=== PATIENT | female | born 1980 | race Caucasian/White ===

== ENCOUNTER 2024-11-30 08:36 | Emergency (ER) | payer OTHER ==
[2024-11-30 09:13] LABS: Absolute Basophils 0.1 K/uL (0-0.5); Absolute Eosinophils 0.3 K/uL (0-0.5); Absolute Monocytes 0.5 K/uL (0.1-1.3); Absolute Neutrophil 4.5 K/uL (1.8-8.0); Basophils % 0.9 % (0-1.3); Eosinophils % 3.5 % (0-4.4); Hematocrit 38.8 % (36.0-45.0); Hemoglobin 12.8 g/dL (12.0-15.0); Lymphocytes % 35.6 % (15.3-44.8); MCH 29.1 pg (27.0-35.0); MCHC 33.1 g/dL (32.0-36.0); MCV 87.8 fL (80-100); MPV 6.9 fL (7.6-11.3); Monocytes % 6.3 % (3.3-12.3); Neutrophils % 53.7 % (41.7-73.7); Platelets 374 thou/uL (152-406); RBC Red Blood Cell Count 4.41 M/uL (3.86-4.86); Red Cell Distribution Width 13.6 % (12.1-15.2)
[2024-11-30 09:16] LABS: Specific Gravity 1.024 (1.005-1.030); Urine Bacteria None Seen /HPF (<20); Urine Bilirubin NEGATIVE (Negative); Urine Blood Negative (Negative); Urine Clarity Extremely Turbid (Clear); Urine Color Light-Yellow (Yellow); Urine Culture Reflex Order NOT NEEDED; Urine Glucose NEGATIVE (Negative); Urine Ketones NEGATIVE (Negative); Urine Microscopic Reflex YN ORDER UMIC; Urine Mucus Slight /HPF (None Seen); Urine Nitrite NEGATIVE (Negative); Urine Protein NEGATIVE (Negative); Urine RBC <5 /HPF (None Seen); Urine Urobilinogen Normal (Normal); Urine WBC None Seen /HPF (<5)
--- NOTE | 2024-11-30 09:22 | RAD REPORT ---
EXAMINATION: CT ABDOMEN AND PELVIS WITH CONTRAST CLINICAL INDICATION: Abdominal pain TECHNIQUE: CT abdomen and pelvis was performed, after the administration of 100 cc Isovue-300.. Sagit svetlana and coronal reconstructions were obtained. One or more of the following dose reduction techniques were used: Automated exposure control, adjustment of the mA and kV according to patient si ze, and iterative reconstruction. Unless otherwise specified, incidental findings do not require dedicated imaging follow-up. [id number]. Oral contrast was not given which limits evaluation of bowel and appendix. COMPARISON: .None FINDINGS: Liver, spleen, pancreas, and adrenals appear unremarkable Small bilateral renal calculi. No hydronephrosis. Normal appendix. Hysterectomy. No adnexal mass. Mild stranding within the central mesentery fat. No evidence of diverticulitis. Moderate anterior subluxation L5 on S1. Spondylolysis L5. Tiny umbilical hernia : IMPRESSION: Small nonobstructing bilateral renal calculi Mild stranding within the central mesentery fat may indicate mesenteritis..
[2024-11-30 09:30] LABS: Albumin 3.7 g/dL (3.4-5.0); Anion Gap 6.4 mEq/L (5.0-15.0); Bilirubin Total 0.3 mg/dL (0.2-1.0); Globulin 3.8 g/dL (2.3-3.5); Potassium 3.4 mEq/L (3.5-5.1); Protein, Total 7.5 g/dL (6.4-8.2)
[2024-11-30] MEDS ORDERED: metroNIDAZOLE 500 MG TABLET ONE (09:41)
[2024-11-30] MEDS ORDERED: CIPROFLOXACIN HCL 500 MG TAB ONE (09:42)
--- NOTE | 2024-11-30 10:28 | EDPHYS ---
Physician Documentation [facility] Name: Reema Hargrove Age: 44 yrs Sex: Female : 1980 Arrival Date: 11/30/2024 Time: 08:36 Bed 8 Private MD: ED Physician Malachi Munguia HPI: 11/30 10:21 This 44 yrs old Female presents to ER via Ambulatory with complaints of left side pain, rn Numbness. 10:21 The patient presents with abdominal pain in the left lower quadrant. The symptoms do rn not radiate. Associated signs and symptoms: Pertinent positives: nausea. 10:21 Modifying factors: The symptoms are alleviated by nothing, the symptoms are aggravated rn by touching the area. Severity of pain: At its worst the pain was moderate in the emergency department the pain is unchanged. The patient has experienced similar episodes in the past. Patient reports has been having months of left sided flank and abdominal pain, had shingles and has been attributed to postherpetic neuralgia, on Lyrica with some improvement. Over the last few days has noticed increase in abdominal pain that feels different from her shingles pain or postherpetic neuralgia. No fever or chills. No nausea or vomiting. No blood in stool. Reports sharp and cramping pain that comes in waves. No recent illness. 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 - Infectious Disease History:: Denies. - Social history:: Smoking status: Patient denies any tobacco usage or history of. - Family history:: not pertinent. - Hospitalizations: : No recent hospitalization is reported. ROS: 10:21 Constitutional: Negative for fever, chills, and weight loss, Cardiovascular: Negative rn for chest pain, palpitations, and edema, Respiratory: Negative for shortness of breath, cough, wheezing, and pleuritic chest pain, Abdomen/GI: Positive for left-sided abdominal pain MS/Extremity: Negative for injury and deformity, Skin: Negative for injury, rash, and discoloration, Neuro: Negative for headache, and seizure, Exam: 10:21 Constitutional: This is a well developed, well nourished patient who is awake, alert, rn and in no acute distress. Cardiovascular: Regular rate and rhythm. No pulse deficits. Respiratory: No increased work of breathing, no retractions or nasal flaring. Abdomen/GI: Soft, mild left lower quadrant abdominal tenderness. No rebound or guarding. No rash Vital Signs: 08:48 BP 133 / 94; Pulse 97; Resp 17; Temp 97.9; Pulse Ox 99% ; Weight 86.18 kg; Height 5 ft. jl7 4 in. ; Pain 7/10; 09:44 BP 111 / 72; Pulse 81; Resp 16; Pulse Ox 99% on R/A; iw 10:30 BP 117 / 74; Pulse 77; Resp 17; Pulse Ox 98% on R/A; rs5 08:48 Body Mass Index 32.61 (86.18 kg, 162.56 cm) jl7 08:48 Pain Scale: Adult 7 MDM: 08:40 Medical Screening Exam initiated rn 10:21 Differential diagnosis: gastritis, gastroesophageal reflux disease, non-specific abd rn pain, pancreatitis, Peptic Ulcer Disease, Perf. Duodenal Ulcer, Perf. Gastric Ulcer, Pyelonephritis, Ureterolithiasis, urinary tract infection. Data reviewed: vital signs, nurses notes, lab test result(s), radiologic studies, CT scan, and as a result, I will discharge patient. Counseling: I had a detailed discussion with the patient and/or guardian regarding the historical points, exam findings, and any diagnostic results supporting the discharge/admit diagnosis, lab results, radiology results, the need for outpatient follow up, to return to the emergency department if symptoms worsen or persist or if there are any questions or concerns that arise at home. Special discussion: I discussed with the patient/guardian in detail that at this point there is no indication for admission to the hospital. It is understood, however, that if the symptoms persist or worsen the patient needs to return immediately for re-evaluation. ED course: CT shows mesenteritis, patient is not in low flow state, normotensive and no history of atrial fibrillation, not likely ischemic. Will treat with antibiotics and discharge home.. 11/30 08:54 Order name: CBC with Diff; Complete Time: 09:26 rn 11/30 08:54 Order name: CMP; Complete Time: 09:34 rn 11/30 08:54 Order name: Lipase; Complete Time: 09:34 rn 11/30 08:54 Order name: Urinalysis w/ reflexes; Complete Time: 09:26 rn 11/30 08:54 Order name: CT Abd/Pelvis - IV Contrast Only; Complete Time: 09:26 rn 11/30 08:54 Order name: IV Saline Lock; Complete Time: 09:24 rn 11/30 08:54 Order name: Labs collected and sent; Complete Time: 09:24 rn Administered Medications: 09:44 Drug: Ciprofloxacin PO 500 mg PO once Route: PO; iw 10:25 Follow up: Response: No adverse reaction rs5 09:44 Drug: metroNIDAZOLE PO 500 mg PO once Route: PO; iw 10:25 Follow up: Response: No adverse reaction rs5 Disposition Summary: 11/30/24 10:27 Discharge Ordered Notes: Location: Home rn Problem: new rn Symptoms: have improved rn Condition: Stable rn Diagnosis - Mesenteritis rn Followup: rn - With: Private Physician - When: As needed - Reason: Recheck today's complaints, Re-evaluation by your physician Discharge Instructions: - Discharge Summary Sheet rn - Abdominal Pain, Adult rn Forms: - Medication Reconciliation Form rn - Antibiotic 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 - Prescription Opioid Use rn - Patient Portal Instructions rn - Leadership Thank You Letter rn Prescriptions: - Cipro 500 mg Oral Tablet - take 1 tablet ORAL route every 12 hours for 10 days; 20 tablet; Refills: 0, rn Product Selection Permitted - Flagyl 500 mg Oral Tablet - take 1 tablet ORAL route every 8 hours for 10 days; 30 tablet; Refills: 0, rn Product Selection Permitted - Tramadol 50 mg Oral Tablet - take 1 tablet ORAL route every 8 hours as needed; 12 tablet; Refills: 0, rn Product Selection Permitted Signatures: Dispatcher [employer] Tri Kline RN RN iw Malachi Munguia MD MD rn Leal, Jahala, RN RN jl7 Jt Hernandez RN rs5
--- NOTE | 2024-11-30 10:28 | ER ---
Nurse's Notes [facility] Name: Reema Hargrove Age: 44 yrs Sex: Female : 1980 Arrival Date: 11/30/2024 Time: 08:36 Bed 8 Private MD: Diagnosis: Mesenteritis Presentation: 11/30 08:48 Chief complaint: Patient states: Left thoracic pain since 09/04/24 post shingles jl7 infection. Coronavirus screen: At this time, the client does not indicate any symptoms associated with coronavirus-19. Ebola Screen: No symptoms or risks identified at this time. Initial Sepsis Screen: Does the patient meet any 2 criteria? No. Patient's initial sepsis screen is negative. Does the patient have a suspected source of infection? No. Patient's initial sepsis screen is negative. Risk Assessment: Do you want to hurt yourself or someone else? Patient reports no desire to harm self or others. Onset of symptoms was September 04, 2024. 08:48 Method Of Arrival: Ambulatory jl7 08:48 Acuity: LATOYA 3 jl7 Triage Assessment: 08:50 General: Appears in no apparent distress. uncomfortable, Behavior is calm, cooperative, jl7 appropriate for age. Pain: Complains of pain in posterior aspect of left lateral abdomen and anterior aspect of left lateral abdomen Pain currently is 7 out of 10 on a pain scale. 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 - Infectious Disease History:: Denies. - Social history:: Smoking status: Patient denies any tobacco usage or history of. - Family history:: not pertinent. - Hospitalizations: : No recent hospitalization is reported. Screenin:07 [facility] ED Fall Risk Assessment (Adult) History of falling in the last 3 months, iw including since admission No falls in past 3 months (0 pts) Confusion or Disorientation No (0 pts) Intoxicated or Sedated No (0 pts) Impaired Gait No (0 pts) Mobility Assist Device Used No (0 pt) Altered Elimination No (0 pt) Score/Fall Risk Level 0 - 2 = Low Risk Oriented to surroundings, Maintained a safe environment. Abuse screen: Denies threats or abuse. Denies injuries from another. Nutritional screening: No deficits noted. Tuberculosis screening: No symptoms or risk factors identified. Assessment: 08:45 General: Appears in no apparent distress. uncomfortable, Behavior is calm, cooperative. rs5 Pain: Complains of pain in left sided chest pain, superficial Pain currently is 4 out of 10 on a pain scale. Quality of pain is described as aching, Is continuous. Neuro: Level of Consciousness is awake, alert, obeys commands, Oriented to person, place, time, situation. Cardiovascular: Patient's skin is warm and dry. Respiratory: Airway is patent Respiratory effort is even, unlabored, Respiratory pattern is regular, symmetrical. GI: Abdomen is round non-distended, Abd is soft and non tender X 4 quads. : No signs and/or symptoms were reported regarding the genitourinary system. EENT: No signs and/or symptoms were reported regarding the EENT system. Derm: Skin is intact, Skin is pink, warm \T\ dry. Musculoskeletal: Range of motion: intact in all extremities. 09:25 Reassessment: Patient and/or family updated on plan of care and expected duration. Pain rs5 level reassessed. Patient is alert, oriented x 3, equal unlabored respirations, skin warm/dry/pink. 09:44 Reassessment: Patient appears in no apparent distress at this time. iw 10:37 Reassessment: Patient and/or family updated on plan of care and expected duration. Pain rs5 level reassessed. Patient is alert, oriented x 3, equal unlabored respirations, skin warm/dry/pink. Vital Signs: 08:48 BP 133 / 94; Pulse 97; Resp 17; Temp 97.9; Pulse Ox 99% ; Weight 86.18 kg; Height 5 ft. jl7 4 in. ; Pain 7/10; 09:44 BP 111 / 72; Pulse 81; Resp 16; Pulse Ox 99% on R/A; iw 10:30 BP 117 / 74; Pulse 77; Resp 17; Pulse Ox 98% on R/A; rs5 08:48 Body Mass Index 32.61 (86.18 kg, 162.56 cm) jl7 08:48 Pain Scale: Adult [facility] ED Course: 08:39 Patient arrived in ED. im 08:40 Malachi Munguia MD is Attending Physician. rn 08:45 Patient has correct armband on for positive identification. Placed in gown. Bed in low rs5 position. Call light in reach. Side rails up X2. 08:50 Triage completed. jl7 08:50 Arm band placed on right wrist. [facility] 08:51 Jt Hernandez, RN is Primary Nurse. rs5 09:00 No provider procedures requiring assistance completed. Inserted saline lock: 22 gauge rs5 in right antecubital area, using aseptic technique. Blood collected. Flushed with 10 mL NS. 09:17 CT Abd/Pelvis - IV Contrast Only In Process Unspecified. EDMS 10:37 IV discontinued, intact, bleeding controlled, No redness/swelling at site. Pressure rs5 dressing applied. 10:38 Provided Education on: discharge instructions. rs5 Administered Medications: 09:44 Drug: Ciprofloxacin PO 500 mg PO once Route: PO; iw 10:25 Follow up: Response: No adverse reaction rs5 09:44 Drug: metroNIDAZOLE PO 500 mg PO once Route: PO; iw 10:25 Follow up: Response: No adverse reaction rs5 Medication: 09:08 VIS not applicable for this client. Outcome: 10:27 Discharge ordered by . rn 10:37 Discharged to home ambulatory, with family, rs5 10:37 Condition: stable 10:37 Discharge instructions given to patient, family, Instructed on discharge instructions, follow up and referral plans. medication usage, Demonstrated understanding of instructions, follow-up care, medications, Prescriptions given X 3, 10:47 Patient left the ED. rs5 Signatures: Dispatcher [employer] EDMS Tri Leach, RN RN iw Malachi Munguia MD MD rn Leal, Jahala, RN RN [facility] Jt Hernandez, NASH CAO rs5 Cassy Austin im
[2024-11-30 15:49] VITALS: O2SAT 99
[2024-11-30 15:51] VITALS: BP 133/94; TEMP 97.9
== END 2024-11-30 10:47 | disposition home or self-care (01) ==
LOC: ER 08:36
DX: K65.4 Sclerosing mesenteritis (principal)
CPT/HCPCS: 85025; 81001; 36415; 83690; 80053; 74177; 99284; Q9967